=== PATIENT | female | born 2000 | race Two or more races ===

== ENCOUNTER 2022-07-27 10:45 | Emergency (ER) | payer MEDICAID ==
[~2022-07-27] VITALS: Ht 162.6 cm; Wt 55.3 kg
[2022-07-27 11:29] LABS: Urine WBC None Seen /hpf (0 - 5)
[2022-07-27 11:43] LABS: Urine Bacteria NONE SEEN /hpf (None Seen); Urine Blood Negative /uL (Negative); Urine Specific Gravity 1.005 (1.001-1.035)
[2022-07-27 14:18] VITALS: BP 110/72
== END 2022-07-27 14:23 | disposition home or self-care (01) ==
LOC: ER 10:45
DX: F07.81 Postconcussional syndrome (principal); R42 Dizziness and giddiness; R51.9 Headache, unspecified; F12.10 Cannabis abuse, uncomplicated; Z32.02 Encounter for pregnancy test, result negative
CPT/HCPCS: 70450; 81001; 81025